=== PATIENT | male | born 1975 | race Caucasian/White ===

== ENCOUNTER 2023-12-16 21:14 | Emergency (ER) | payer OTHER, MEDICAID, SELFPAY ==
[2023-12-16 21:28] VITALS: BP 145/82; PULSE 78; RESP 20; TEMP 36.8; O2SAT 99; BMI 25.4
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
[2023-12-16 22:53] VITALS: BP 123/91; PULSE 72; RESP 17; O2SAT 100
[2023-12-16 23:00] VITALS: BP 115/65
[2023-12-16 23:12] VITALS: PULSE 70; O2SAT 99
[2023-12-16 23:14] VITALS: BP 185/128; PULSE 77; O2SAT 98
[2023-12-16 23:30] VITALS: BP 139/67; PULSE 74; O2SAT 98
--- NOTE | 2023-12-16 23:36 | PC.NURSE ---
Provider ok'd pt to take his personal medications. Bupropion XL 150 mg & Suboxone 8 mg/2mg SL.
[2023-12-17] VITALS: BP 145/84; PULSE 80; O2SAT 99
[2023-12-17 00:30] VITALS: BP 140/84; PULSE 81; O2SAT 96
[2023-12-17] MEDS: TRAMADOL 50 MG PREPACK 1 BOTTLE MISC (01:19)
== END 2023-12-17 01:20 | disposition home or self-care (01) ==
PROVIDERS: Emergency Provider Emergency Medicine; PCP Physician Assistant Medical
DX: S42.002A Fracture of unspecified part of left clavicle, initial encounter for closed fracture (principal); R07.81 Pleurodynia; V19.9XXA Pedal cyclist (driver) (passenger) injured in unspecified traffic accident, initial encounter
CPT/HCPCS: 36415; 71046; 73030; 99283; 99284

== ENCOUNTER → 2024-02-17 12:59 | Outpatient (CLI) | payer OTHER, MEDICAID, SELFPAY ==
[2024-02-17 20:16] LABS: Basophils Absolute Auto 100 /uL (0-100); Eosinophils Absolute Auto 100 /uL (0-450); Eosinophils Percent Auto 1.9 % (2-4); Hematocrit 44.9 % (41-53); Hemoglobin 15.2 g/dL (13.5-17.5); Lymphocytes Absolute Auto 1900 /uL (1100-4500); Lymphocytes Percent Auto 33.3 % (25-40); Mean Corpuscular HGB Conc 33.9 % (30-36); Mean Corpuscular Hemoglobin 30.9 PG (26-34); Mean Corpuscular Volume 91.2 fL (80-100); Monocytes Absolute Auto 400 /uL (0-900); Monocytes Percent Auto 7.8 % (3-14); Neutrophils Absolute Auto 3100 /uL (1500-7000); Platelet Count 209 X10^3/uL (150-400); Red Blood Cell Count 4.92 X10^6/uL (4.5-5.9); White Blood Cell Count 5.6 X10^3/uL (4.5-11.0)
[2024-02-17 20:19] LABS: Cholesterol 184 mg/dL (140-199); HDL Cholesterol 61 mg/dL (40-60); LDL Cholesterol Calculated 101 mg/dL (<100); Triglycerides 108 mg/dL (35-150)
[2024-02-17 20:21] LABS: Alanine Aminotransferase 20 IU/L (<50); Albumin Globulin Ratio 1.4 (1.0-2.8); Alkaline Phosphatase 147 U/L (38-126); Aspartate Aminotransferase 41 IU/L (17-59); BUN Creatinine Ratio 11.4 (6-22); Bilirubin Total 1.2 mg/dL (0.2-1.3); Blood Urea Nitrogen 8 mg/dL (9-20); Calcium 9.7 mg/dL (8.4-10.2); Carbon Dioxide 29 mmol/L (22-32); Chloride 100 mmol/L (98-107); Estimated Glomerular Filt Rate > 60 mL/min (>60); Globulin 2.8 g/dL (1.7-4.1); Glucose 107 mg/dL (70-100); HEMOLYSIS 30 (0-50); Potassium 4.5 mmol/L (3.4-5.1); Sodium 135 mmol/L (137-145); Total Protein 6.8 g/dL (6.3-8.2)
[2024-02-17 20:22] LABS: Add Manual Diff / Slide Review SLIDE REVIEW
[2024-02-17 20:51] LABS: TSH w/ Reflex to FT4 2.07 uIU/mL (0.47-4.68)
[2024-02-17 20:53] LABS: Testosterone 293 ng/dL (71.8-623)
[2024-02-17 22:05] LABS: RBC Morphology Normal Morphology
== END ==
PROVIDERS: PCP Physician Assistant Medical; Visit Provider Physician Assistant Medical
DX: R79.89 Other specified abnormal findings of blood chemistry (principal); I10 Essential (primary) hypertension; M54.9 Dorsalgia, unspecified; G89.29 Other chronic pain
CPT/HCPCS: 80053; 80061; 84402; 84403; 84443; 85025